=== PATIENT | male | born 1970 | race African-American/Black ===

== ENCOUNTER 2024-04-22 10:06 | Emergency (ER) | payer OTHER ==
[2024-04-22 10:23] VITALS: BP 148/88; PULSE 85; RESP 18; TEMP 98.8; BMI 31.6
[2024-04-22] MEDS ORDERED: MAG HYDROX/AL HYDROX/SIMETH 30 ML UNIT-DOSE CUP ONE (12:09)
[2024-04-22] MEDS ORDERED: ACETAMINOPHEN INJECTION 100 ML ONE (12:09)
[2024-04-22] MEDS ORDERED: ONDANSETRON 4 MG/2 ML VIAL ONE (12:09)
[2024-04-22] MEDS ORDERED: FAMOTIDINE 20 MG/50 ML IVPB 20 MG/50 ML MG IVPB ONE (12:09)
[2024-04-22 12:40] LABS: BASO % 0.4 % (0-2.0); EOS % 2.1 % (0-4.5); HEMATOCRIT 41.1 % (35.4-49); HEMOGLOBIN 13.2 GM/dL (11.7-16.9); LYMPH % 12.5 % (8-40); MCH 30.2 pg (25.7-33.7); MCHC 32.2 g/dl (32.0-35.9); MEAN CELL VOLUME 93.8 fl (80-96); MEAN PLT VOLUME 7.9 fl (7.5-11.1); MONO % 7.1 % (3.8-10.2); NEUT % 77.9 % (42.8-82.8); PLATELET COUNT 173 10^3/uL (134-434); RBC 4.38 M/mm3 (4.00-5.60); RDW 13.5 % (11.9-15.9); WHITE BLOOD COUNT 7.8 K/mm3 (4.0-10.0)
[2024-04-22] MEDS: ONDANSETRON 4 MG/2 ML VIAL IVPUSH ONE (12:44)
[2024-04-22] MEDS: FAMOTIDINE 20 MG/50 ML IVPB 20 MG/50 ML MG IVPB ONE (12:44)
[2024-04-22] MEDS: MAG HYDROX/AL HYDROX/SIMETH -MYLANTA- ORAL SUSPENSION PO ONE (12:44)
[2024-04-22] MEDS ORDERED: ASPIRIN 81 MG CHEWABLE TABLETS ONE (12:50)
[2024-04-22] MEDS: ASPIRIN 81 MG CHEWABLE TABLETS PO ONE (12:53)
[2024-04-22 13:10] LABS: CALCIUM 9.2 mg/dL (8.5-10.1)
[2024-04-22 13:11] LABS: ALBUMIN 3.3 g/dl (3.4-5.0)
[2024-04-22 13:15] LABS: BILIRUBIN,TOTAL 1.1 mg/dL (0.2-1)
[2024-04-22 13:16] LABS: TOT PROT 6.2 g/dl (6.4-8.2)
[2024-04-22] MEDS: ACETAMINOPHEN 1000 MG/100 ML BAG IVPB ONE (13:53)
[2024-04-22 14:07] LABS: HIV INTERPRETATION NEGATIVE (NEGATIVE)
[2024-04-22] MEDS ORDERED: ALBUTEROL SO4 HFA INHALER IH ONE ×2 (14:55→14:56)
== END 2024-04-22 15:24 | disposition left against medical advice (07) ==
LOC: JER 10:06
PROC: 3E033GC Introduction of Other Therapeutic Substance into Peripheral Vein, Percutaneous Approach (ICD-10-PCS; principal; 2024-04-22)
PROC: 3E033NZ Introduction of Analgesics, Hypnotics, Sedatives into Peripheral Vein, Percutaneous Approach (ICD-10-PCS; 2024-04-22)
PROC: 3E033GC Introduction of Other Therapeutic Substance into Peripheral Vein, Percutaneous Approach (ICD-10-PCS; 2024-04-22)
DX: R10.11 Right upper quadrant pain (principal); R07.9 Chest pain, unspecified; R11.2 Nausea with vomiting, unspecified; R19.7 Diarrhea, unspecified; R50.9 Fever, unspecified; R06.02 Shortness of breath; Z20.822 Contact with and (suspected) exposure to COVID-19
CPT/HCPCS: 0241U-QW; 36415; 76705-TC; 80053; 82962; 83690; 84484; 85025; 86803; 87389; 93005; 93010; 99285-25; J0131